=== PATIENT | female | born 2000 | race American Indian/Alaskan Native ===

== ENCOUNTER 2022-01-09 18:38 | Emergency (ER) | payer BC ==
[2022-01-09] MEDS ORDERED: KETOROLAC 10 MG TAB PO ONE (19:07)
[2022-01-09] MEDS ORDERED: TETANUS,DIPH,PERTUSS(ACELL) VACCINE 0.5 ML SYRINGE IM ONE (19:07)
[2022-01-09] MEDS ORDERED: AMOXICILLIN/K CLAV 875/125MG TAB PO ONE (19:08)
[2022-01-09] MEDS ORDERED: oxyCODONE /ACETAMINOPHEN 5-325MG TAB PO ONE (19:09)
--- NOTE | 2022-01-09 20:17 | XRay Report ---
RIGHT HAND 3 VIEWS INDICATION / CLINICAL INFORMATION: Right hand pain, dog bite. COMPARISON: None available. FINDINGS: BONES and JOINT(S): No acute fracture or subluxation. No significant arthritis. SOFT TISSUES: A small amount of soft tissue gas is seen along the thenar eminence, likely representin g the site of the patient's reported dog bite. No radiopaque foreign body or other significant abnorm ality. ADDITIONAL FINDINGS: None. IMPRESSION: Right hand soft tissue abnormalities as above, consistent with the provided history of dog bite. No o ther acute findings. Signer Name: Carlitos Smith MD Signed: 01/09/2022 8:13 PM Workstation Name: [id number]
--- NOTE | 2022-01-09 20:41 | Emergency Department Report ---
ED Animal Bite HPI - General Chief Complaint: Animal Bite Stated Complaint: DOG BITE - RT HAND Time Seen by Provider: 01/09/22 19:00 Source: patient Mode of arrival: Ambulatory Limitations: No Limitations - History of Present Illness Initial Comments: 21-year-old black female with no past medical history presents to the emergency department for evaluation of right thumb pain after being bit by a dog while walking in her neighborhood. She states that she does not know who the dog belongs to, and the dog ran back into the words after it bit her. She states that she was bitten on her right thumb and then the dog jumped up and scratched her on her left breast area. MD Complaint: animal bite -: Sudden Location: chest Right: Hand Animal: dog Animal Control Notified: No Description: immunizations unknown Mechanism: bite, scratch Pain Description: sharp, constant Severity scale (0 -10): 10 Context: unprovoked, other (States that she was just walking in her neighborhood) Associated Symptoms: bleeding. denies: loss of consciousness Treatments Prior to Arrival: other (None) - Related Data Patient Tetanus UTD: No Previous Rx's Medication Instructions Recorded Last Taken Type Acetaminophen/Codeine [Tylenol 1 tab PO Q6H PRN #15 tab 01/09/22 Unknown Rx /Codeine # 3 tab] Amoxicillin/Potassium Clav 1 each PO BID #14 tab 01/09/22 Unknown Rx [Augmentin 875-125 Tablet] Ketorolac [Toradol] 10 mg PO Q6H PRN #12 tab 01/09/22 Unknown Rx Ondansetron [Zofran Odt] 4 mg PO Q8HR PRN #12 tab.rapdis 01/09/22 Unknown Rx Allergies Allergy/AdvReac Type Severity Reaction Status Date / Time No Known Allergies Allergy Unverified 01/09/22 18:51 ED Review of Systems ROS: Stated complaint: DOG BITE - RT HAND Other details as noted in HPI Comment: All other systems reviewed and negative Constitutional: denies: fever Eyes: denies: eye pain ENT: denies: ear pain Respiratory: denies: cough, shortness of breath Cardiovascular: denies: chest pain, palpitations Endocrine: no symptoms reported Gastrointestinal: denies: abdominal pain, nausea, vomiting Genitourinary: denies: urgency, dysuria Musculoskeletal: denies: back pain Skin: other (Right thumb laceration along with multiple abrasions to right thumb abrasions to left chest). denies: rash, lesions Neurological: denies: headache, weakness Psychiatric: denies: anxiety Hematological/Lymphatic: denies: easy bleeding, easy bruising ED Past Medical Hx - Medications Home Medications: Home Medications Medication Instructions Recorded Confirmed Last Taken Type Acetaminophen/Codeine [Tylenol 1 tab PO Q6H PRN #15 tab 01/09/22 Unknown Rx /Codeine # 3 tab] Amoxicillin/Potassium Clav 1 each PO BID #14 tab 01/09/22 Unknown Rx [Augmentin 875-125 Tablet] Ketorolac [Toradol] 10 mg PO Q6H PRN #12 tab 01/09/22 Unknown Rx Ondansetron [Zofran Odt] 4 mg PO Q8HR PRN #12 tab.rapdis 01/09/22 Unknown Rx ED Physical Exam - General Limitations: No Limitations General appearance: alert, in no apparent distress - Head Head exam: Present: atraumatic, normocephalic - Eye Eye exam: Present: normal appearance. Absent: conjunctival injection - Neck Neck exam: Present: normal inspection. Absent: tenderness - Respiratory Respiratory exam: Present: normal lung sounds bilaterally, chest wall tenderness. Absent: respiratory distress - Cardiovascular Cardiovascular Exam: Present: regular rate, normal heart sounds - GI/Abdominal GI/Abdominal exam: Present: soft, normal bowel sounds. Absent: distended, tenderness, guarding, rebound, rigid - Expanded Upper Extremity Exam Right Hand Wrist exam: Present: tenderness, swelling, laceration Hand L/R Front: 1 - Positive: laceration Hand L/R Back: 1 - Multiple abrasions noted Vascular: Present: normal capillary refill, radial pulse. Absent: vascular compromise, pulse deficit radial art - Back Exam Back exam: Present: normal inspection - Neurological Exam Neurological exam: Present: alert, oriented X3 - Psychiatric Psychiatric exam: Present: normal affect, normal mood - Skin Skin exam: Present: warm, dry, intact, normal color - Expanded Skin Exam Expanded 1 - Multiple abrasions noted ED Course Vital Signs 01/09/22 01/09/22 01/09/22 18:47 19:40 21:03 Temperature 98.8 F 97.6 F Pulse Rate 90 75 Respiratory 20 18 18 Rate Blood Pressure 137/70 Blood Pressure 133/74 [Left] O2 Sat by Pulse 99 97 Oximetry - Nerve Block Time Out Performed: Yes Local Anesthetic Used: Lidocaine 1% Amount of anesthesia used: 3 Side: right Nerve Blocks: digital Procedure Successful: Yes Complications: none Patient Tolerated Procedure: well Additional Comments: Nerve block to to manage pain and able practitioner to clean wound well and visualize better. Critical care attestation.: If time is entered above; I have spent that time in minutes in the direct care of this critically ill patient, excluding procedure time. ED Disposition Clinical Impression: Dog bite Qualifiers: Encounter type: initial encounter Qualified Code(s): W54.0XXA - Bitten by dog, initial encounter Disposition: HOME / SELF CARE / HOMELESS Is pt being admited?: No Does the pt Need Aspirin: No Condition: Stable Instructions: Animal Bite, Adult, [id number], Rabies Additional Instructions: Take medications as prescribed. Keep wound clean and dry. Follow-up in the emergency department for worsening symptoms or no improvement. Prescriptions: Amoxicillin/Potassium Clav [Augmentin 875-125 Tablet] 1 each PO BID #14 tab Ketorolac [Toradol] 10 mg PO Q6H PRN #12 tab PRN Reason: Pain Acetaminophen/Codeine [Tylenol /Codeine # 3 tab] 1 tab PO Q6H PRN #15 tab PRN Reason: Pain , Severe (7-10) Ondansetron [Zofran Odt] 4 mg PO Q8HR PRN #12 tab.rapdis PRN Reason: Nausea Referrals: [facility] [Outside] - 3-5 Days [facility] [Other] - 3-5 Days Time of Disposition: 20:41 Medical Decision Making - Radiology Data Radiology results: report reviewed, image reviewed Right hand x-ray without any acute abnormalities noted. - MDM 21-year-old black female with no past medical history presents to the emergency department for evaluation of right thumb pain after being bit by a dog while walking in her neighborhood. She states that she does not know who the dog belongs to, and the dog ran back into the words after it bit her. She states that she was bitten on her right thumb and then the dog jumped up and scratched her on her left breast area. Patient's tetanus was updated. She was treated with pain medication and first dose of Augmentin while in the emergency department. She was advised that she will possibly need rabies series given the fact that she did not know the status of the dog's immunization and dog ran back into the drew so unlikely that the dog will be captured by animal control, but patient refused stating that she did not want to be injected into her finger near the wound and she would just take her chances or return if she had any problems. Wound was cleaned thoroughly and dressed. She was advised to take medication as prescribed and follow-up with primary care provider if no improvement or worsening symptoms. She was advised to return to the emergency department for any concerning symptoms. Plan of care was reviewed with patient, and she verbalized understanding of and agreement with.
[2022-01-09 21:04] VITALS: BP 133/74
== END 2022-01-09 21:04 | disposition home or self-care (01) ==
LOC: ED 18:38
DX: S61.051A Open bite of right thumb without damage to nail, initial encounter (principal); W54.0XXA Bitten by dog, initial encounter; Y93.89 Activity, other specified; Y92.89 Other specified places as the place of occurrence of the external cause; Y99.8 Other external cause status
CPT/HCPCS: 90715; 96372; 99283